=== PATIENT | female | born 1970 | race Caucasian/White ===

== ENCOUNTER 2016-06-07 10:18 | Emergency (ER) | payer MEDICAID ==
[~2016-06-07] VITALS: Ht 152.4 cm; Wt 68.1 kg
[~2016-06-07 10:18] MED LIST: HYDR-3498 PO; IBUP-1542 PO; MECL12.574 PO
[2016-06-07 10:34] VITALS: Ht 152.4 cm; Wt 68.1 kg
--- NOTE | 2016-06-07 11:56 | ERD ---
ER Documentation Chief Complaint Date/Time DATE: 06/07/16 TIME: 11:52 Chief Complaint DYSURIA & BODY/ACHE MALAISE X1 WEEK HPI 45-year-old female presents to the emergency room for multiple complaints including bilateral flank pain, dysuria, generalized body ache. Symptoms started about a week ago. Associated with no vomiting. Denies headache, loss of consciousness, dizziness, blurry vision, changes in vision, photophobia, facial pain, ear pain, throat pain, difficulty swallowing, neck pain, shoulder pain, chest pain, cough, hemoptysis, loss of appetite, nausea, vomiting, hematochezia, diarrhea, constipation, , the possibility of being , bladder and bowel incontinences, extremity weakness, extremity tenderness, numbness or tingling sensation, difficulty walking, recent travel, recent exposure to illness, recent antibiotic use in the last 3 months, fever, chills. Allergy: NKDA PMH: Denies. Family medical history: Denies. AO LMP: "A month ago." Medications: Denies. Surgery: . Primary Social History: Not working at this time. Denies smoking, use of alcohol, use of illegal drugs. ROS All systems reviewed and are negative except as per history of present illness. Medications Home Meds Active Scripts Meclizine Hcl* (Antivert*) 12.5 Mg Tab, 12.5 MG PO Q6H Y for dizziness, #20 TAB Prov:SHEY,INDIGO C 05/20/15 Hydrocodone Bit-Acetaminophen* (Daniel*) 5-325 Mg Tab, 1 TAB PO Q6 Y for PAIN, # 20 TAB Prov:SKY DURAN PA-C 05/20/15 Ibuprofen* (Motrin*) 600 Mg Tab, 600 MG PO Q6, #30 TAB Prov:SHEY,INDIGO C 05/20/15 Allergies Allergies: Coded Allergies: No Known Allergy (Verified , 10/26/12) PMhx/Soc History of Surgery: Yes ([facility]) Anesthesia Reaction: No Hx Neurological Disorder: No Hx Respiratory Disorders: No Hx Cardiac Disorders: No Hx Psychiatric Problems: No Hx Miscellaneous Medical Probl: No Hx Alcohol Use: No Hx Substance Use: No Hx Tobacco Use: No Physical Exam Vitals Vital Signs Date Time Temp Pulse Resp B/P Pulse Ox O2 Delivery O2 Flow Rate FiO2 06/07/16 10:34 100.1 104 20 98/64 97 Physical Exam CONSTITUTIONAL: Well-appearing; well-nourished; in no apparent distress. HEAD: Normocephalic; atraumatic. EYES: Conjunctiva clear, sclera non-icteric, EOM intact. PERRLA. Ears: Hearing intact. EACs clear, TMs non-bulging, non-inflamed, translucent & mobile, ossicles normal appearance, No obstructions, no erythema, no discharges Nose: No obstructions. No polyps. No external lesions. Mucosa non-inflamed. No external lesions, septum and turbinates normal. No rhinorrhea. No discharges. Frontal sinus is non-tender to palpation. Maxillary sinus is non-tender to palpation. MOUTH: Moist mucous membranes, no lesion, no obstructions, no vesicles, no thrush, patent airway Throat: Uvula in midline. Right tonsil is +1 with no erythema, no exudate. Left tonsil is +1 with no erythema, no exudate. Tolerating secretions well. Good gag reflex. Patent airway. Neck: Supple, without lesions, bruits, or adenopathy. No mass. Thyroid non- enlarged and non-tender to palpation. CHEST: Symmetrical chest. Respirations even and not labored. No retractions noted. CARDIOVASCULAR: Normal S1, S2. RRR. No murmurs, gallops. RESPIRATORY: Normal chest excursion with respiration; breath sounds clear and equal bilaterally; no wheezes, rhonchi, or rales. Breathing even and unlabored. Speaking in clear, full, and complete sentences w/ ease. ABDOMEN: Normal bowel sounds normal. Soft, round, non-distended, non-guarding, no rebound, no organomegaly, no masses, no pulsating abdominal mass. No hernia. Right lower abdominal tenderness. No peritoneal signs. : Bilateral CVA tenderness. BACK: Symmetrical shoulder. Spine is midline without deformity, tenderness. No evidence of trauma or deformity. PELVIS: Stable pelvis. No evidence of trauma or deformity. MUSCULOSKELETAL: Normal gait and station. No misalignment, asymmetry, crepitation, defects, tenderness, masses, effusions, decreased range of motion, instability, atrophy or abnormal strength or tone in the head, neck, spine, ribs , pelvis or extremities. No calf tenderness. NEUROVASCULAR: Distal pulses are present. Pedal pulse are present, equal, and normal. Capillary refills are < 2 seconds. NEUROLOGIC: Alert and oriented x4. Speaks full and clear sentences. Cranial Nerves II-XII normal. Sensation to pain, touch, and proprioception normal. Grossly unremarkable. No neurologic deficits. Romberg test is negative. PSYCHOLOGICAL: The patients mood and manner are appropriate. No hallucinations , delusions. Not SI. Not HI. Has the capacity to decide for self SKIN: Normal for age and ethnicity; warm; dry; good turgor; no apparent lesions or exudates. No rashes, hives, discoloration. Intact. Result Diagram: 06/07/16 1215 06/07/16 1215 Results 24 hrs Laboratory Tests Test 06/07/16 12:15 White Blood Count 18.210^3/ul Red Blood Count 4.9610^6/ul Hemoglobin 14.8g/dl Hematocrit 44.2% Mean Corpuscular Volume 89.1fl Mean Corpuscular Hemoglobin 29.8pg Mean Corpuscular Hemoglobin Concent 33.5g/dl Red Cell Distribution Width 13.1% Platelet Count 51241^3/UL Mean Platelet Volume 12.1fl Neutrophils % 90.6% Lymphocytes % 4.6% Monocytes % 4.1% Eosinophils % 0.0% Basophils % 0.2% Nucleated Red Blood Cells % 0.0/100WBC Neutrophils # 16.510^3/ul Lymphocytes # 0.810^3/ul Monocytes # 0.810^3/ul Eosinophils # 0.010^3/ul Basophils # 0.010^3/ul Nucleated Red Blood Cells # 0.010^3/ul Urine Color YELLOW Urine Clarity SLIGHTLY CLOUDY Urine pH 6.0 Urine Specific [place] 1.025 Urine Ketones NEGATIVE Urine Nitrite NEGATIVE Urine Bilirubin NEGATIVE Urine Urobilinogen 0.2 E.U./dL Urine Leukocyte Esterase TRACE Urine Microscopic RBC Pending Urine Microscopic WBC Pending Urine Hemoglobin 3+ Urine Glucose NEGATIVE% Urine Total Protein TRACE Urine Test NEGATIVE Sodium Level 140mmol/L Potassium Level 3.7mmol/L Chloride Level 102mmol/L Carbon Dioxide Level 21mmol/L Anion Gap 21 Blood Urea Nitrogen 11mg/dl Creatinine 0.61mg/dl Glucose Level 142mg/dl Calcium Level 9.3mg/dl Total Bilirubin 0.8mg/dl Direct Bilirubin 0.00mg/dl Indirect Bilirubin 0.8mg/dl Aspartate Amino Transf (AST/SGOT) 37IU/L Alanine Aminotransferase (ALT/SGPT) 47IU/L Alkaline Phosphatase 98IU/L Total Protein 9.0g/dl Albumin 4.9g/dl Globulin 4.10g/dl Albumin/Globulin Ratio 1.19 Amylase Level 79U/L Lipase 40U/L Current Medications Medications (Trade) Dose Ordered Sig/Caesar Route PRN Reason Start Time Stop Time Status Last Admin Dose Admin Acetaminophen 650 mg 650 mg ONCE ONCE PO 06/07/16 12:00 06/07/16 12:01 DC 06/07/16 12:20 Sodium Chloride (NS) 1,000 ml @ 1,000 mls/hr Q1H ONCE IV 06/07/16 12:00 06/07/16 12:59 DC 06/07/16 12:20 Ketorolac Tromethamine (Toradol) 30 mg ONCE STAT IV 06/07/16 12:00 06/07/16 12:02 DC 06/07/16 12:20 Ondansetron HCl (Zofran Inj) 4 mg ONCE STAT IV 06/07/16 12:00 06/07/16 12:02 DC 06/07/16 12:20 Procedures/MDM Examination: Please see physical examination. Disease process, medical treatment was explained to the patient and family member. They verbalized understanding and agreed with the diagnostic tests, medical treatment, and follow-up care. Radiology: CT of the abdomen and pelvis Impression: No abdominal or pelvic acute inflammatory process, mass or lymphadenopathy. Blood works: Elevated white count. Urinalysis: 3+ hemoglobin; trace leukocyte esterase Culture urine: Treatment: Toradol. Tylenol. Ceftriaxone IV. Re-evaluation: Denies headache, blurred vision, dizziness, pain, shoulder pain, chest pain, back pain, abdominal pain, back pain. No nausea and vomiting. No right upper abdominal tenderness on light and deep palpation. No episode of emesis here to emergency department. Consultation: Differential diagnosis: Appendicitis versus pyelonephritis versus nephrolithiasis versus flu Medical decision m[age]-year-old female presents to the emergency room for multiple complaints including bilateral flank pain, dysuria, generalized body ache. Symptoms started about a week ago. Associated with no vomiting. Patient 's complaint, patient's history about her complaint, my physical findings, diagnostic test results, my reevaluation are consistent with my final diagnosis of Case was discussed with supervising physician, Dr. Raciel Watson who agreed with my medical decision making and follow-up care. Medications prescribed are the following: Cipro. Motrin. Patient and family member are made aware of the side effects and adverse reactions of the medications prescribed. Instructed on when to seek emergent and medical attention in case allergic/anaphylactic reactions or severe side effects and or adverse reactions to medications. Patient and family member verbalized understanding. Patient instructed Instructed to follow-up with his PCP in 24-48 hours. Instructed to Call 911 for chest pain, shortness of breath. Advised to come back here in ED as soon as possible for severity of symptoms which includes but not limited to: any new symptoms; shortness of breath/difficulty of breathing; cardiovascular changes; severe gastrointestinal symptoms; signs and symptoms of bleeding and or infection; signs of compartment syndrome/neurovascular changes; neurological changes/deficits. Patient and family member verbalized understanding. Upon discharge, patient is alert and oriented x 4, speaks full and clear sentences, denies pain, has no neurological deficits, has no neurovascular deficits, difficulty of breathing. Breathing even and unlabored. Lung sounds are clear to auscultation. Not in distress. Appears comfortable. Ambulatory with steady gait. Appears satisfied with care provided here in ED. Departure Diagnosis: Primary Impression: Influenza-like symptoms Additional Impression: Pyelonephritis Condition: Stable Additional Instructions: Patient instructed Instructed to follow-up with his PCP in 24-48 hours. Instructed to Call 911 for chest pain, shortness of breath. Advised to come back here in ED as soon as possible for severity of symptoms which includes but not limited to: any new symptoms; shortness of breath/difficulty of breathing; cardiovascular changes; severe gastrointestinal symptoms; signs and symptoms of bleeding and or infection; signs of compartment syndrome/neurovascular changes; neurological changes/deficits. Patient and family member verbalized understanding. RIVERA HAYNES Jun 07, 2016 11:56
[2016-06-07] MEDS ORDERED: KETOROLAC 30 MG INJ IV STA (12:00)
[2016-06-07] MEDS ORDERED: ACETAMINOPHEN 325 MG TAB PO ONE (12:00)
[2016-06-07] MEDS ORDERED: SOD CHLORIDE 0.9% 1,000 ML IV ONE (12:00)
[2016-06-07] MEDS ORDERED: ONDANSETRON 4 MG INJ IV STA (12:00)
--- NOTE | 2016-06-07 12:43 | RADRPT ---
PROCEDURE: XR Chest. CLINICAL INDICATION: chest pain , cough, sore throat TECHNIQUE: PA and lateral views of the chest were obtained COMPARISON: None FINDINGS: The heart and mediastinum are within normal limits. The lungs are clear. There is no pleural effusion or pneumothorax. The bones and soft tissues are unremarkable. RPTAT: AA IMPRESSION: No acute disease. .Michael Baca MD, MD Date Time Electronically viewed and signed by .Michael Baca MD, on 06/07/2016 12:43 .S/
[2016-06-07 12:47] LABS: ADD SCAN DIFF NO
[2016-06-07 12:57] LABS: BASOPHILS % 0.2 % (0.0-2.0); HEMATOCRIT 44.2 % (37.0-47.0); HEMOGLOBIN 14.8 g/dl (12.0-16.0); LYMPHOCYTES # 0.8 10^3/ul (0.8-2.9); LYMPHOCYTES % 4.6 % (15.0-51.0); MEAN CORPUSCULAR HEMOGLOBIN 29.8 pg (29.0-33.0); MEAN CORPUSCULAR HGB CONC 33.5 g/dl (32.0-37.0); MEAN CORPUSCULAR VOLUME 89.1 fl (82.0-101.0); MEAN PLATELET VOLUME 12.1 fl (7.4-10.4); MONOCYTE # 0.8 10^3/ul (0.3-0.9); MONOCYTES % 4.1 % (0.0-11.0); NEUTROPHIL # 16.5 10^3/ul (1.6-7.5); NEUTROPHILS % 90.6 % (39.0-77.0); PLATELET COUNT 204 10^3/UL (140-415); RED BLOOD COUNT 4.96 10^6/ul (4.20-5.40); RED CELL DISTRIBUTION WIDTH 13.1 % (11.5-14.5); WHITE BLOOD COUNT 18.2 10^3/ul (4.8-10.8)
[2016-06-07 13:13] LABS: ALBUMIN 4.9 g/dl (3.3-4.9)
[2016-06-07 13:14] LABS: POTASSIUM 3.7 mmol/L (3.5-5.1)
[2016-06-07 13:16] LABS: BILIRUBIN,INDIRECT 0.8 mg/dl (0-1.1); BILIRUBIN,TOTAL 0.8 mg/dl (0.2-1.3); CREATININE 0.61 mg/dl (0.44-1.00)
[2016-06-07 13:17] LABS: ALBUMIN/GLOBULIN RATIO 1.19; CALCIUM 9.3 mg/dl (8.4-10.2)
[2016-06-07 13:27] LABS: ADD UMIC YES; URINE BILIRUBIN (Dip) NEGATIVE (NEGATIVE); URINE BLOOD (Dip) 3+ (NEGATIVE); URINE COLOR YELLOW (YELLOW); URINE GLUCOSE (Dip) NEGATIVE (NEGATIVE); URINE KETONES (Dip) NEGATIVE (NEGATIVE); URINE LEUKOCYTE ESTERASE (Dip) TRACE (NEGATIVE); URINE NITRITE (Dip) NEGATIVE (NEGATIVE); URINE TOTAL PROTEIN (Dip) TRACE (NEGATIVE); URINE UROBILINOGEN (Dip) 0.2 E.U./dL (0.1-1.0)
--- NOTE | 2016-06-07 13:43 | RADRPT ---
PROCEDURE: CT Abdomen and Pelvis without contrast. CLINICAL INDICATION: Abdominal pain. TECHNIQUE: CT scan of the abdomen and pelvis without contrast was performed on a multidetector hig h-resolution CT scanner. The patient was scanned without intravenous contrast. Coronal and sagittal reformatted images were obtained from the axial source images. Images were reviewed on a high-resol [employer] PACS workstation. One or more of the following dose reduction techniques were used: Automated exposure control, adjustment of the mA and/or kV according to patient size, use of iterative recon struction technique. The total exam CTDI equals 11.2 mGy and the total exam DLP equals 659.43 mGy-c m. COMPARISON: None. FINDINGS: CT abdomen: The lung bases are clear. The heart size is normal, without pericardial thickening or effusion. The liver is normal in size and density without focal mass or intrahepatic biliary dilatation. The spleen is normal in size and homogeneous in density. The stomach is grossly unremarkable. The panc reas as visualized is normal. The gallbladder and biliary tree are unremarkable and there is no deyanira dence for biliary dilatation. The adrenal glands are symmetric and normal. The kidneys are symmetr ically unremarkable as well. No renal calculus or obstructive uropathy or mass lesion is seen. The aorta is of normal caliber. There is no retroperitoneal lymphadenopathy. The carlos hepatis reg ion is clear. The small bowel and mesentery, as visualized, are unremarkable. CT pelvis: The small bowel loops situated within the pelvis are unremarkable. The pelvic organs are normal. T he pelvic sidewalls and inguinal regions are clear. The sigmoid colon and rectum are unremarkable. No mass, lymphadenopathy, or free fluid is seen. No acute inflammation is seen. Linear region of calcifications in the inferior vaginal canal on the left may be secondary to chronic inflammation. The surrounding osseous structures are unremarkable. No osteolytic or osteoblastic lesion is detec martin. IMPRESSION: No abdominal or pelvic acute inflammatory process, mass, or lymphadenopathy. RPTAT: JJ .Bharathi Rojo MD, MD Date Time Electronically viewed and signed by .Bharathi Rojo MD, MD on 06/07/2016 13:43 .A/
[2016-06-07 13:55] LABS: SQUAMOUS EPITHELIAL CELL,UR MODERATE
[2016-06-07 13:56] LABS: BACTERIA,URINE FEW; MUCUS,URINE MODERATE
[2016-06-07] MEDS ORDERED: IBUP-1542 PO (13:56)
[2016-06-07] MEDS ORDERED: CIPR500T4 PO (13:56)
[2016-06-07] MEDS ORDERED: CEFTRIAXONE 1 GM INJ IM ONE (14:00)
[2016-06-07] MEDS ORDERED: CEFTRIAXONE 1 GM/50 ML (PMX) 50 ML IVPB ONE (14:00)
[2016-06-07 14:53] VITALS: PULSE 69; RESP 16; TEMP 98.4
[2016-06-07 15:11] VITALS: BP 92/56
== END 2016-06-07 15:29 | disposition home or self-care (01) ==
LOC: FTE 10:18
DX: N12 Tubulo-interstitial nephritis, not specified as acute or chronic (principal); R10.9 Unspecified abdominal pain
CPT/HCPCS: 36415; 71020; 74176; 80053; 81001; 81003; 82150; 83690; 84703; 85025; 87086; 96374; 96375; J0696; J1885; J2405; J7030; Z7502; Z7610

== ENCOUNTER 2016-06-12 09:23 | Emergency (ER) | payer MEDICAID ==
[~2016-06-12] VITALS: Ht 152.4 cm; Wt 64.5 kg
[~2016-06-12 09:23] MED LIST changes: +CIPR500T4 PO
[2016-06-12 09:26] VITALS: Ht 152.4 cm; Wt 64.5 kg
[2016-06-12] MEDS ORDERED: MECLIZINE 12.5 MG TAB PO ONE (10:00)
[2016-06-12 10:02] LABS: URINE BLOOD (Dip) POC 2+ (NEGATIVE)
--- NOTE | 2016-06-12 10:14 | RADRPT ---
PROCEDURE: CT Brain without contrast. CLINICAL INDICATION: Headaches and dizziness for 1 week TECHNIQUE: CT scan of the brain was performed on a multidetector high-resolution CT scan. Axial im aging was obtained of the brain without contrast administration. Coronal and sagittal reformatted i mages were obtained from the axial source images. Standard CT scan of the head without contrast prot ocols were performed. The total exam CTDI equals 43.68 mGy and the total exam DLP equals 630.2 mGy-cm. One or more of the following dose reduction techniques were used: - Automated exposure control. - Adjustment of the mA and/or kV according to patient size. Use of iterative reconstruction technique. COMPARISON: CT head without contrast 05/20/2015 FINDINGS: The ventricular system is normal in size without midline shift. There is no evidence of intracrania l masses hemorrhages or midline shift. Chan-white matter differentiation is unremarkable. The bone s and calvarium are intact. Paranasal sinuses visualized are unremarkable. There is chronic right mastoiditis. IMPRESSION: 1. No significant change. 2. No evidence of intracranial masses hemorrhages or midline shift. RPTAT:AAJJ Physician Ronel Date Time Electronically viewed and signed by Physician Ronel on 06/12/2016 10:14 BM/
[2016-06-12] MEDS ORDERED: MECL12.574 PO (10:25)
[2016-06-12] MEDS ORDERED: IBUP-1542 PO (10:25)
--- NOTE | 2016-06-12 10:33 | ERD ---
ER Documentation Chief Complaint Date/Time DATE: 06/12/16 TIME: 10:28 Chief Complaint hammond x 1 week; dizzy HPI Patient os a 45-year-old female who presents to the emergency department the headache and dizziness 1 week. Patient states the pain is primarily in frontal region. Patient is at her pain has been getting gradually worse. Patient states she has been taking ibuprofen for pain which does slightly alleviate the pain. Patient denies any sudden onset of headache. Patient does report some nausea however she denies any vomiting. Patient denies any photophobia, phonophobia, blurry vision or loss of consciousness. She also reports some dizziness. Patient states her dizziness is worse with movement. Patient states she feels worse on walking. Patient states that the room feels as if it is spinning. Dizziness is episodic in nature and lasts 1-2 minutes. Patient denies any abdominal pain, chest pain, shortness of breath, urinary symptoms. ROS All systems reviewed and are negative except as per history of present illness. Medications Home Meds Active Scripts Ibuprofen* (Motrin*) 600 Mg Tab, 600 MG PO Q6, #30 TAB Prov:MAMADOU BARBOZA PA-C 06/12/16 Meclizine Hcl* (Antivert*) 12.5 Mg Tab, 12.5 MG PO Q6H Y for DIZZINESS, #20 TAB Prov:MAMADOU BARBOZA PA-C 06/12/16 Ibuprofen* (Motrin*) 600 Mg Tab, 600 MG PO Q6H Y for PAIN AND OR ELEVATED TEMP, #30 TAB Prov:RIVERA HAYNES 06/07/16 Ciprofloxacin Hcl* (Ciprofloxacin Hcl*) 500 Mg Tablet, 500 MG PO BID for 7 Days , TAB Prov:RIVERA HAYNES 06/07/16 Meclizine Hcl* (Antivert*) 12.5 Mg Tab, 12.5 MG PO Q6H Y for dizziness, #20 TAB Prov:INDIGO KAT 05/20/15 Hydrocodone Bit-Acetaminophen* ([place]*) 5-325 Mg Tab, 1 TAB PO Q6 Y for PAIN, # 20 TAB Prov:SKY DURAN PA-C 05/20/15 Ibuprofen* (Motrin*) 600 Mg Tab, 600 MG PO Q6, #30 TAB Prov:INDIGO KAT 05/20/15 Allergies Allergies: Coded Allergies: No Known Allergy (Verified , 10/26/12) PMhx/Soc Medical and Surgical Hx: pt denies Medical Hx, pt denies Surgical Hx History of Surgery: Yes () Anesthesia Reaction: No Hx Neurological Disorder: No Hx Respiratory Disorders: No Hx Cardiac Disorders: No Hx Psychiatric Problems: No Hx Miscellaneous Medical Probl: No Hx Alcohol Use: No Hx Substance Use: No Hx Tobacco Use: No Smoking Status: Never smoker FmHx Family History: No diabetes Physical Exam Vitals Vital Signs Date Time Temp Pulse Resp B/P Pulse Ox O2 Delivery O2 Flow Rate FiO2 06/12/16 09:26 98.2 74 18 129/81 100 Physical Exam GENERAL: Well-developed, well-nourished female. Appears in no acute distress. Speaking in full sentences. HEAD: Normocephalic, atraumatic. No deformities or ecchymosis. EYE: Pupils equal, round, and reactive to light. EOMs intact. No conjunctival erythema. No eye discharge. ENT: External ear without any masses or tenderness. Auditory canals clear bilaterally. TM visualized bilaterally, non-erythematous, non-bulging. Nasal mucosa pink with no discharge. Oropharynx is pink without any tonsillar erythema or exudates. No uvula deviation. No kissing tonsils. NECK: Supple. No meningismus. Normal ROM of the neck. LUNG: Clear to auscultation bilaterally. No rhonchi, wheezing, rales or coarse breath sounds. HEART: Regular rate and rhythm. No murmurs, rubs or gallops. BACK: No midline tenderness. EXTREMITES: Equal pulses bilaterally. No peripheral clubbing, cyanosis or edema. No unilateral leg swelling. NEUROLOGIC: Alert and oriented x3, cooperative. Mood and affect appropriate to situation. Cranial nerves II through XII are grossly intact. Normal speech. Motor exam: 5/5 strength in upper and lower extremities. Sensory exam: Sensation intact to light touch on all four extremities. Cerebellar function exam: Rapid alternating movements intact. No dysmetria on [id number] test. Steady gait. No pronator drift. Negative Brudzinski sign. Negative Kernig sign. SKIN: Normal color. Warm and dry. No rashes or lesions. Results 24 hrs Laboratory Tests Test 06/12/16 10:02 Bedside Urine pH (LAB) 5.5 Bedside Urine Protein (LAB) Negative Bedside Urine Glucose (UA) Negative Bedside Urine Ketones (LAB) Negative Bedside Urine Blood 2+ Bedside Urine Nitrite (LAB) Negative Bedside Urine Leukocyte Esterase (L Negative Current Medications Medications (Trade) Dose Ordered Sig/Caesar Route PRN Reason Start Time Stop Time Status Last Admin Dose Admin Meclizine HCl (Antivert) 12.5 mg ONCE ONCE PO 06/12/16 10:00 06/12/16 10:01 DC 06/12/16 10:00 Procedures/MDM ED COURSE: The patient was stable throughout ED course. I kept the patient and/or family informed of laboratory and diagnostic imaging results throughout the ED course. DIAGNOSTIC IMAGING: Read by radiologist. DIAGNOSTIC IMAGING REPORT Patient: VALERIY ALEJO : 1970 Age: 45 Sex: F MR #: [id number] DOS: 06/12/16 0952 Ordering MD: MAMADOU BARBOZA PA-C Location: [facility] Room/Bed: PROCEDURE: CT Brain without contrast. CLINICAL INDICATION: Headaches and dizziness for 1 week TECHNIQUE: CT scan of the brain was performed on a multidetector high- resolution CT scan. Axial imaging was obtained of the brain without contrast administration. Coronal and sagittal reformatted images were obtained from the axial source images. Standard CT scan of the head without contrast protocols were performed. The total exam CTDI equals 43.68 mGy and the total exam DLP equals 630.2 mGy- cm. One or more of the following dose reduction techniques were used: - Automated exposure control. - Adjustment of the mA and/or kV according to patient size. Use of iterative reconstruction technique. COMPARISON: CT head without contrast 05/20/2015 FINDINGS: The ventricular system is normal in size without midline shift. There is no evidence of intracranial masses hemorrhages or midline shift. Chan-white matter differentiation is unremarkable. The bones and calvarium are intact. Paranasal sinuses visualized are unremarkable. There is chronic right mastoiditis. IMPRESSION: 1. No significant change. 2. No evidence of intracranial masses hemorrhages or midline shift. RPTAT:AAJJ B Kyrie Physician Date Time Electronically viewed and signed by Ko Mittal Physician on 06/12/2016 10:14 BM/ CC: MAMADOU BARBOZA PA-C PROCEDURES: None. MEDICATIONS GIVEN: Meclizine Patient tolerated medication well with no adverse reactions. Patient reported improvement in dizziness prior to discharge. MEDICAL DECISION MAKING: This is a 45 year old female who presents with a headache and dizziness. Patient report feeling as if the room was spinning. Dizziness was noted to be worse with movements. Vital signs were reviewed. Patient was afebrile. Patient is not hypoxic. Full neurological exam was normal. CT brain showed showed no acute findings. Given these findings, the patient's presentation is most consistent with BPPV and headache. I have a much lower clinical concern for intracranial hemorrhage, meningitis, encephalitis, CO poisoning, temporal arteritis, benign intracranial hypertension, intracranial mass, glaucoma, preeclampsia, sinusitis, MS, labyrinthitis, acute otitis media. PRESCRIPTIONS: Meclizine, Ibuprofen DISCHARGE: At this time, patient is stable for discharge and outpatient management. I have encouraged the patient to hydrate well. I have instructed the patient to follow- up with his/her primary care physician in 1-2 days. If symptoms persist, patient may need to see a specialist for further examinations and testing. I have instructed the patient to promptly return to the ER at any time for any new or worsening symptoms including increased increased pain, fever, nausea, vomiting, numbness, neck stiffness, visual changes, weakness or LOC. The patient and/or family expressed understanding of and agreement with this plan. All questions were answered. Home care instructions were provided. Departure Diagnosis: Primary Impression: Headache Headache type: unspecified Headache chronicity pattern: unspecified pattern Intractability: not intractable Qualified Code: R51 - Nonintractable headache, unspecified chronicity pattern, unspecified headache type Additional Impression: BPPV (benign paroxysmal positional vertigo) Laterality: unspecified laterality Qualified Code: H81.10 - BPPV (benign paroxysmal positional vertigo), unspecified laterality Condition: Stable Patient Instructions: Self-Care for Headaches Referrals: COMMUNITY CLINICS YOU HAVE RECEIVED A MEDICAL SCREENING EXAM AND THE RESULTS INDICATE THAT YOU DO NOT HAVE A CONDITION THAT REQUIRES URGENT TREATMENT IN THE EMERGENCY DEPARTMENT. FURTHER EVALUATION AND TREATMENT OF YOUR CONDITION CAN WAIT UNTIL YOU ARE SEEN IN YOUR DOCTORS OFFICE WITHIN THE NEXT 1-2 DAYS. IT IS YOUR RESPONSIBILITY TO MAKE AN APPOINTMENT FOR FOLOW-UP CARE. IF YOU HAVE A PRIMARY DOCTOR --you should call your primary doctor and schedule an appointment IF YOU DO NOT HAVE A PRIMARY DOCTOR YOU CAN CALL OUR PHYSICIAN REFERRAL HOTLINE AT IF YOU CAN NOT AFFORD TO SEE A PHYSICIAN YOU CAN CHOSE FROM THE FOLLOWING [facility] [address] [facility] [address] [facility] [address] [facility] [address] [facility] [address] [facility]. [facility] [address] [facility] [facility] YOU HAVE RECEIVED A MEDICAL SCREENING EXAM AND THE RESULTS INDICATE THAT YOU DO NOT HAVE A CONDITION THAT REQUIRES URGENT TREATMENT IN THE EMERGENCY DEPARTMENT. FURTHER EVALUATION AND TREATMENT OF YOUR CONDITION CAN WAIT UNTIL YOU ARE SEEN IN YOUR DOCTORS OFFICE WITHIN THE NEXT 1-2 DAYS. IT IS YOUR RESPONSIBILITY TO MAKE AN APPOINTMENT FOR FOLOW-UP CARE. IF YOU HAVE A PRIMARY DOCTOR --you should call your primary doctor and schedule and appointment IF YOU DO NOT HAVE A PRIMARY DOCTOR YOU CAN CALL OUR PHYSICIAN REFERRAL HOTLINE AT . IF YOU CAN NOT AFFORD TO SEE A PHYSICIAN YOU CAN CHOSE FROM THE FOLLOWING [facility] INSTITUTIONS: [facility] [address] [place] [address] [facility] [address] [place] [address] [facility] [address] [place] [address] Additional Instructions: Llame al doctor MAANA y francheska sofía MARIELA PARA DENTRO DE 1-2 STANTON.Dgale a la secretaria que nosotros le instruimos hacer esta mariela.Avise o llame si hamilton condicin se empeora antes de la mariela. Regresa aqui si peor o no mejor. MAMADOU BARBOZA PA-C Jun 12, 2016 10:33 AT . IF YOU CAN NOT AFFORD TO SEE A PHYSICIAN YOU CAN CHOSE FROM THE FOLLOWING [facility] INSTITUTIONS: [facility] [address] [place] [address] [facility] [address] [place] [address] [facility] [address] [place] [address] Additional Instructions: Llame al doctor MAANA y francheska sofía MARIELA PARA DENTRO DE 1-2 STANTON.Dgale a la secretaria que nosotros le instruimos hacer esta mariela.Avise o llame si hamilton condicin se empeora antes de la mariela. Regresa aqui si peor o no mejor. MAMADOU BARBOZA PA-C Jun 12, 2016 10:33
== END 2016-06-12 10:33 | disposition home or self-care (01) ==
LOC: FTE 09:23
DX: R51 Headache (principal); H81.10 Benign paroxysmal vertigo, unspecified ear
CPT/HCPCS: 70450; 81003; Z7610